=== PATIENT | female | born 1980 | race African-American/Black ===

== ENCOUNTER 2019-01-23 20:07 | Emergency (ER) | payer OTHER ==
[~2019-01-23] VITALS: Ht 149.9 cm; Wt 65.8 kg
[2019-01-23 20:10] VITALS: BP 99/66
--- NOTE | 2019-01-23 20:10 | NUR ---
PT CHETAN, PT FOUND ON STRE[address] BY PD PASSED OUT ON FLOOR WITH BOTTLE OF ALCOHOL NEARBY. PT IS ALTERED, ONLY ANSWERS REGARDING HER NAME. SKIN IS WARM AND DRY; LUNGS CLEAR BL; HR EVEN AND REGULAR; FLACC 0; VSS; PATIENT POSITIONED FOR COMFORT; HOB ELEVATED; BEDRAILS UP X2; BED DOWN. ER MD MADE AWARE OF PT STATUS.
[2019-01-23] MEDS ORDERED: NACL 0.9% 1,000 ML IV ONE (20:20)
--- NOTE | 2019-01-23 21:05 | NUR ---
20G IV STARTED ON RIGHT HAND. PT TOLERATED WELL.
[2019-01-23 21:14] LABS: BASOPHILS # (AUTO) 0.1 K/uL (0.00-0.22); BASOPHILS % (AUTO) 1.1 % (0.0-2.0); EOSINOPHILS % (AUTO) 0.4 % (0.0-4.0); HEMATOCRIT 39.9 % (36-48); HEMOGLOBIN 13.4 g/dL (12.0-16.0); LYMPHOCYTES % (AUTO) 35.5 % (20.5-51.1); MEAN CORPUSCULAR HEMOGLOBIN 28 pg (27-31); MEAN CORPUSCULAR HGB CONC 34 g/dL (33-37); MEAN CORPUSCULAR VOLUME 81.6 fL (80-94); MONOCYTES # (AUTO) 0.6 K/uL (0.8-1.0); MONOCYTES % (AUTO) 7.6 % (1.7-9.3); NEUTROPHILS # (AUTO) 4.7 K/uL (1.8-7.7); NEUTROPHILS % (AUTO) 55.4 % (42.2-75.2); PLATELET COUNT (AUTO) 329 K/uL (140-450); RED BLOOD CELL COUNT(AUTO) 4.89 MIL/uL (4.20-5.40); RED CELL DISTRIBUTION WIDTH 13.3 % (11.6-13.7); WHITE BLOOD COUNT (AUTO) 8.5 K/uL (4.8-10.8)
[2019-01-23 21:25] LABS: ANION GAP 16.1 (8-16); CARBON DIOXIDE 24.7 mmol/L (21-32); CHLORIDE 106 mmol/L (98-107); CREATININE 0.7 mg/dL (0.6-1.3); GFR ARICAN-AMERICAN 120 mL/min (>90); GLUCOSE 100 mg/dL (74-106); POTASSIUM 3.8 mmol/L (3.5-5.1); SODIUM SERUM 143 mmol/L (136-145); UREA NITROGEN, BLOOD 17 mg/dL (7-18)
[2019-01-23 21:35] LABS: ASPARTATE AMINOTRANSFERASE 19 U/L (15-37); TOTAL BILIRUBIN 0.1 mg/dL (0.0-1.0)
[2019-01-23 21:39] LABS: SALICYLATE < 2.8 mg/dL (2.8-20.0)
[2019-01-23 21:41] LABS: ACETAMINOPHEN < 0.5 ug/ml (10-30)
--- NOTE | 2019-01-23 22:15 | NUR ---
OBTAINED URINE SAMPLE FROM PT. PT STILL VERY LETHARGIC. WAS GOING TO USE STRAIGHT CATH WHEN PT STARTED VOIDING. MANAGED TO CATCH SOME URINE IN CUP MID-STREAM.
[2019-01-23 22:56] LABS: BARBITURATE, URINE NEG. ng/ml (NEG <=200); BENZODIAZEPINE, URINE NEG. ng/mL (NEG <=200); CANNABINOID, URINE NEG. ng/mL (NEG <=50); COCAINE, URINE NEG. ng/mL (NEG <=300); OPIATE, URINE NEG. ng/mL (NEG <=2000); PHENCYCLIDINE SCREEN,URINE NEG. ng/mL (NEG <=25)
--- NOTE | 2019-01-23 23:40 | NUR ---
TRIED TO WAKE UP PT, BUT PT KEEPS FALLING ASLEEP. SAT PT UP IN BED. WILL CONTINUE TO MONITOR.
--- NOTE | 2019-01-24 00:02 | NUR ---
PT PHONE KEPT VIBRATING, GETTING MESSAGES FROM "MAVIS." CALLED THE PHONE NUMBER FROM [facility]OSPITAL [facility] AND ASKED FOR RELATIONSHIP TO PT, HE SAID HE WAS HER COUSIN AND PT SAID IT WAS OK IF HE CAME PICK HER UP. ASKED MAVIS TO MAIL HANDLER PT AND HE SAID HE WOULD BE RIGHT OVER.
[2019-01-24 00:15] VITALS: BP 108/55
--- NOTE | 2019-01-24 00:15 | NUR ---
Patient discharged with v/s stable. Written and verbal after care instructions given and explained. Patient verbalized understanding. All questions addressed prior to discharge. Advised to follow up with PMD. WHEELED PT OUT TO WAIT FOR PICKUP IN LOBBY.
== END 2019-01-24 00:15 | disposition home or self-care (01) ==
LOC: MED 20:07
DX: F10.129 Alcohol abuse with intoxication, unspecified (principal); R41.0 Disorientation, unspecified; Y90.8 Blood alcohol level of 240 mg/100 ml or more
CPT/HCPCS: 36415; 70450; 72125; 80053; 80305; 85025; 93005; 96360; 99284; G0480; G0482; J7030